=== PATIENT | female | born 1955 | race Caucasian/White ===

== ENCOUNTER 2017-07-01 06:58 | Day surgery (SDC) | payer BC ==
[~2017-07-01 06:58] MED LIST: Midazolam 1 MG/ML 2 ML SDV ONE; fentaNYL 100 MCG/2 ML SDV ONE
[2017-07-01] MEDS ORDERED: Midazolam 1 MG/ML 2 ML SDV IV ONE ×3 (06:59→08:34)
[2017-07-01] MEDS ORDERED: fentaNYL 100 MCG/2 ML SDV IV ONE ×3 (06:59→08:30)
[2017-07-01] MEDS ORDERED: Lactated Ringers 1,000 ML IV SCH (08:00)
[2017-07-01 10:41] VITALS: BP 123/51
--- NOTE | 2017-07-01 14:56 | OR ---
DATE: 07/01/2017 PREOPERATIVE DIAGNOSES: Screening colonoscopy and hemorrhoids. POSTOPERATIVE DIAGNOSES: Screening colonoscopy and hemorrhoids. PROCEDURES: Total colonoscopy with snare excision of 3 to 4 mm proximal transverse colon polyp. ANESTHESIA: Conscious sedation with IV Versed and fentanyl. SPECIMEN: Polyp. FINDINGS: As above, sessile polyp in the proximal transverse colon. Minimal sigmoid diverticulosis and moderate external hemorrhoids. RECOMMENDATION: Follow up colonoscopy for polyp surveillance five years. INDICATION FOR PROCEDURE: This 62-year-old female, who has not had a prior colonoscopy. She did have 1 actually 12 years ago and that was normal. She has no symptoms other than symptomatic hemorrhoids. DESCRIPTION OF PROCEDURE: After adequate preparation, colonoscope was inserted into the rectum and this was easily passed all the way to the cecum. Confirmation of the cecum was made by visualization of the ileocecal valve on palpation in the right lower quadrant. A photograph of the ileocecal valve was taken. The bowel prep was very good. On withdrawal of the scope in the proximal transverse colon, there was a 3-4 mm sessile polyp. A snare was placed around this and the polyp excised, not all of them was removed, so a second attempt with a snare retrieved the rest of the polyp. No other abnormalities of growth were noted within the colon. She does have a few scattered sigmoid diverticula but not very large or significant. Rectal examination is normal. She has no prominent internal hemorrhoids, but circumferential external hemorrhoids might suggest that she have a surgery consult for hemorrhoidectomy which I had discussed with this patient preoperatively, and that will be up to her whether she wants to pursue that. [facility] /[id number] cc: Sara Carlson [employer] [facility]
== END 2017-07-01 10:35 | disposition home or self-care (01) ==
LOC: DL.ENDO 06:58
PROVIDERS: ATTEND Surgery
DX: Z12.11 Encounter for screening for malignant neoplasm of colon (principal); D12.3 Benign neoplasm of transverse colon; K64.4 Residual hemorrhoidal skin tags; K57.30 Diverticulosis of large intestine without perforation or abscess without bleeding; Z88.2 Allergy status to sulfonamides; Z88.8 Allergy status to other drugs, medicaments and biological substances; J30.81 Allergic rhinitis due to animal (cat) (dog) hair and dander
CPT/HCPCS: 45385; J2250; J3010; J7120